=== PATIENT | male | born 1960 | race African-American/Black ===

== ENCOUNTER 2022-04-22 20:49 | Inpatient (IN) | payer OTHER, MEDICAID ==
[~2022-04-22] VITALS: Ht 175.3 cm; Wt 78.8 kg
[2022-04-22 22:35] LABS: Basophils # (auto) 0 10 ^3/uL (0-0.2); Basophils % (auto) 0.5 % (0.0-2.0); Eosinophils # (auto) 0.2 10 ^3/uL (0-0.8); Eosinophils % (auto) 1.7 % (0.0-7.0); Hematocrit 35.1 % (41.0-53.0); Hemoglobin 11.5 g/dL (13.5-17.5); Lymphocytes # (auto) 0.6 10 ^3/uL (0.4-5.4); Lymphocytes % (auto) 6.7 % (10.0-50.0); Mean Corpuscular Hemoglobin 31.5 pg (28.0-32.0); Mean Corpuscular Hgb Conc. 32.8 g/dL (32.0-36.0); Mean Corpuscular Volume 95.9 fL (80.0-100.0); Monocytes # (auto) 1.1 10 ^3/uL (0-1.3); Monocytes % (auto) 11.9 % (0.0-12.0); Neutrophils # (auto) 7.5 10 ^3/uL (1.6-8.6); Neutrophils % (auto) 79.2 % (37.0-80.0); Nucleated Red Blood Cells % 0.1 %; Red Blood Cells 3.66 10^6/uL (4.5-5.90); Red Cell Distribution Width 14.8 % (11.8-14.3); White Blood Cell 9.4 10^3/uL (4.4-10.8)
[2022-04-22 22:50] LABS: INR 1.28 (0.9-1.15); Partial Thromboplastin Time 29.1 sec (24.6-33.4)
[2022-04-22 22:51] LABS: Albumin 2.4 g/dL (3.4-5.0); BUN/Creatinine Ratio 28.3; Calcium 7.7 mg/dL (8.5-10.1); Potassium 3.7 mmol/L (3.5-5.1)
[2022-04-22 22:54] LABS: Bilirubin, Total 0.8 mg/dL (0.2-1.0); Total Protein 6.2 g/dL (6.4-8.2)
[2022-04-22] MEDS ORDERED: ENOXAPARIN SOD 80 MG/0.8ML SYRINGE SC ONE (23:15)
[2022-04-22] MEDS ORDERED: DEXTROSE (50%) 50ML SYRG IV PRN (23:45)
[2022-04-22] MEDS ORDERED: ACETAMINOPHEN 325 MG TAB PO PRN (23:45)
[2022-04-22] MEDS ORDERED: FUROSEMIDE 40 MG/4 ML VIAL IV ONE (23:45)
[2022-04-22] MEDS ORDERED: NITROGLYCERIN 0.4 MG SL TAB SL PRN (23:45)
[2022-04-22] MEDS ORDERED: ONDANSETRON HCL 4 MG/2 ML VIAL IV PRN (23:45)
[2022-04-22] MEDS ORDERED: ALBUMIN 25% 100 ML IV ONE (23:45)
[2022-04-22] MEDS ORDERED: HEPARIN SODIUM (PORCINE) 5000 UNITS/ML 1ML VIAL IV ONE (23:45)
[2022-04-22] MEDS ORDERED: MORPHINE SULFATE INJ 2 MG/ml SYRG IV PRN (23:45)
[2022-04-22] MEDS ORDERED: DOCUSATE SOD 100 MG CAP PO PRN (23:45)
[2022-04-23 00:37] LABS: Urine Bacteria NONE SEEN /hpf (None Seen); Urine Blood Negative /uL (Negative); Urine Hyaline Cast MOD /lpf (0 - 2); Urine Specific Gravity 1.009 (1.001-1.035); Urine WBC <1 /hpf (0 - 3)
[2022-04-23] MEDS: ACCU-CHEK COMFORT CURVE STRIP VI SCH ×4 (00:57→18:26)
[2022-04-23] MEDS: InsuLIN REG 1unit/0.01ml Soln (100units/ml) SC SCH ×4 (00:58→18:00)
[2022-04-23] MEDS: HYDROcodone-ACET 5/325MG TAB PO PRN ×3 (02:13→11:32)
[2022-04-23] MEDS: SODIUM CHLOR 0.9% PF (SALINE LOCK) 10ML VIAL/SYR IV SCH ×2 (06:00→14:03)
[2022-04-23 06:41] LABS: Basophils # (auto) 0 10 ^3/uL (0-0.2); Basophils % (auto) 0.4 % (0.0-2.0); Eosinophils # (auto) 0.1 10 ^3/uL (0-0.8); Eosinophils % (auto) 1.2 % (0.0-7.0); Hematocrit 33.8 % (41.0-53.0); Hemoglobin 10.7 g/dL (13.5-17.5); Lymphocytes # (auto) 0.7 10 ^3/uL (0.4-5.4); Lymphocytes % (auto) 8.9 % (10.0-50.0); Mean Corpuscular Hemoglobin 30.7 pg (28.0-32.0); Mean Corpuscular Hgb Conc. 31.7 g/dL (32.0-36.0); Monocytes # (auto) 0.9 10 ^3/uL (0-1.3); Neutrophils % (auto) 77.5 % (37.0-80.0); Nucleated Red Blood Cells % 0.1 %; Red Blood Cells 3.49 10^6/uL (4.5-5.90); White Blood Cell 7.8 10^3/uL (4.4-10.8)
[2022-04-23 06:55] LABS: Potassium 3.3 mmol/L (3.5-5.1)
[2022-04-23 07:01] LABS: Albumin 2.8 g/dL (3.4-5.0); Calcium 8.1 mg/dL (8.5-10.1)
[2022-04-23 07:08] LABS: Bilirubin, Total 1.4 mg/dL (0.2-1.0); Total Protein 6.3 g/dL (6.4-8.2)
[2022-04-23] MEDS: ASPirin 81 mg TAB PO SCH (09:59)
[2022-04-23] MEDS ORDERED: HEPARIN SODIUM (PORCINE) 5000 UNITS/ML 1ML VIAL SC SCH (10:00)
[2022-04-23] MEDS ORDERED: FUROSEMIDE 40 MG/4 ML VIAL IV SCH (10:00)
[2022-04-23] MEDS ORDERED: FAMOTIDINE (10MG/ML) 2ML VL IV SCH (10:00)
[2022-04-23 12:59] LABS: Protein, Urine 8.8 mg/dL (0.0-11.9)
[2022-04-23] MEDS ORDERED: SENNA 8.6 MG TAB PO PRN (14:30)
[2022-04-23] MEDS ORDERED: POLYETHYLENE GLYCOL 17 GM PWDR PO PRN (14:30)
[2022-04-23] MEDS ORDERED: CHOLECALCIFEROL (VITD3) 1,000UNIT=25mCg TAB PO ONE (14:30)
[2022-04-23] MEDS: MORPHINE SULFATE 4 MG/ML SYR/VIAL IV PRN ×2 (15:55→18:32)
[2022-04-23] MEDS: TAMSULOSIN HYDROCHLORIDE 0.4 MG CAP PO SCH (18:31)
[2022-04-23] MEDS ORDERED: ENOXAPARIN SOD 40 MG/0.4 ML SYRINGE SC SCH (22:00)
[2022-04-23] MEDS: ceFAZolin 2 GM in D5W 5% 100 ML IV SCH (22:21)
[2022-04-23] MEDS: GABAPENTIN 100 MG CAP PO SCH (22:36)
[2022-04-23] MEDS: SENNA 8.6 MG TAB PO SCH (22:36)
[2022-04-23] MEDS: INSULIN LANTUS (GLARGINE) 1 /0.01ml (100units/ml) SC SCH (22:37)
[2022-04-23] MEDS: METOPROLOL TARTRATE 50 MG TAB PO SCH (22:37)
[2022-04-23] MEDS: traZODone HCL 50 MG TAB PO SCH (22:41)
[2022-04-24] MEDS: ACCU-CHEK COMFORT CURVE STRIP VI SCH ×4 (00:17→18:29)
[2022-04-24 02:25] VITALS: BP 119/82
[2022-04-24 05:00] VITALS: BP 111/78
[2022-04-24] MEDS: InsuLIN REG 1unit/0.01ml Soln (100units/ml) SC SCH ×4 (06:00→18:43)
[2022-04-24] MEDS: ceFAZolin 2 GM in D5W 5% 100 ML IV SCH ×3 (07:12→15:43)
[2022-04-24 07:15] LABS: Basophils # (auto) 0 10 ^3/uL (0-0.2); Basophils % (auto) 0.6 % (0.0-2.0); Eosinophils # (auto) 0.2 10 ^3/uL (0-0.8); Eosinophils % (auto) 2.5 % (0.0-7.0); Hematocrit 30.9 % (41.0-53.0); Hemoglobin 10.1 g/dL (13.5-17.5); Lymphocytes # (auto) 0.6 10 ^3/uL (0.4-5.4); Lymphocytes % (auto) 9.8 % (10.0-50.0); Mean Corpuscular Hemoglobin 31.3 pg (28.0-32.0); Mean Corpuscular Hgb Conc. 32.6 g/dL (32.0-36.0); Monocytes # (auto) 0.9 10 ^3/uL (0-1.3); Monocytes % (auto) 14.1 % (0.0-12.0); Neutrophils # (auto) 4.8 10 ^3/uL (1.6-8.6); Nucleated Red Blood Cells % 0.1 %; Red Blood Cells 3.22 10^6/uL (4.5-5.90); Red Cell Distribution Width 14.6 % (11.8-14.3); White Blood Cell 6.5 10^3/uL (4.4-10.8)
[2022-04-24 07:30] LABS: Albumin 2.5 g/dL (3.4-5.0); Potassium 3.3 mmol/L (3.5-5.1)
[2022-04-24 07:32] LABS: BUN/Creatinine Ratio 27.8; Calcium 8.2 mg/dL (8.5-10.1)
[2022-04-24 07:35] LABS: Bilirubin, Total 1.2 mg/dL (0.2-1.0); Phosphorus 5.6 mg/dL (2.5-4.90); Total Protein 6.1 g/dL (6.4-8.2)
[2022-04-24] MEDS ORDERED: GAB100C PO (07:43)
[2022-04-24] MEDS ORDERED: FURO80TA3 PO (07:43)
[2022-04-24 09:00] VITALS: BP 123/66
[2022-04-24] MEDS: CHOLECALCIFEROL (VITD3) 1,000UNIT=25mCg TAB PO SCH (10:26)
[2022-04-24] MEDS: GABAPENTIN 100 MG CAP PO SCH ×2 (10:42→21:21)
[2022-04-24] MEDS: ASPirin 81 mg TAB PO SCH (10:42)
[2022-04-24] MEDS: VENLAFAXINE HCL 37.5mg XR cap PO SCH (10:43)
[2022-04-24] MEDS: METOPROLOL TARTRATE 50 MG TAB PO SCH ×2 (10:44→21:21)
[2022-04-24] MEDS: MORPHINE SULFATE 4 MG/ML SYR/VIAL IV PRN ×2 (10:46→20:18)
[2022-04-24] MEDS ORDERED: POTASSIUM CHL 20 Meq TABLET PO ONE (11:45)
[2022-04-24] MEDS: CALCIUM ACETATE 667 MG CAP PO SCH ×2 (12:47→18:28)
[2022-04-24 17:00] VITALS: BP 107/72
[2022-04-24] MEDS: TAMSULOSIN HYDROCHLORIDE 0.4 MG CAP PO SCH (18:28)
[2022-04-24 20:00] VITALS: BP 117/75
[2022-04-24] MEDS: ENOXAPARIN SOD 80 MG/0.8ML SYRINGE SC SCH (21:20)
[2022-04-24] MEDS: traZODone HCL 50 MG TAB PO SCH (21:21)
[2022-04-24] MEDS: SENNA 8.6 MG TAB PO SCH (21:22)
[2022-04-24] MEDS: INSULIN LANTUS (GLARGINE) 1 /0.01ml (100units/ml) SC SCH (21:40)
[2022-04-24 22:00] VITALS: BP 117/75
[2022-04-25] MEDS: ACCU-CHEK COMFORT CURVE STRIP VI SCH ×5 (00:07→22:32)
[2022-04-25 05:00] VITALS: BP 98/72
[2022-04-25] MEDS: MORPHINE SULFATE 4 MG/ML SYR/VIAL IV PRN ×3 (05:14→11:22)
[2022-04-25] MEDS: InsuLIN REG 1unit/0.01ml Soln (100units/ml) SC SCH ×5 (05:20→22:32)
[2022-04-25 07:11] LABS: Basophils # (auto) 0 10 ^3/uL (0-0.2); Basophils % (auto) 0.5 % (0.0-2.0); Eosinophils # (auto) 0.1 10 ^3/uL (0-0.8); Eosinophils % (auto) 1.8 % (0.0-7.0); Hematocrit 32.1 % (41.0-53.0); Hemoglobin 10.8 g/dL (13.5-17.5); Lymphocytes # (auto) 0.8 10 ^3/uL (0.4-5.4); Lymphocytes % (auto) 11.5 % (10.0-50.0); Mean Corpuscular Hemoglobin 32.7 pg (28.0-32.0); Mean Corpuscular Hgb Conc. 33.7 g/dL (32.0-36.0); Mean Corpuscular Volume 96.8 fL (80.0-100.0); Monocytes # (auto) 1.2 10 ^3/uL (0-1.3); Monocytes % (auto) 16.2 % (0.0-12.0); Neutrophils # (auto) 5.1 10 ^3/uL (1.6-8.6); Nucleated Red Blood Cells % 0.5 %; Red Blood Cells 3.32 10^6/uL (4.5-5.90); Red Cell Distribution Width 14.9 % (11.8-14.3); White Blood Cell 7.3 10^3/uL (4.4-10.8)
[2022-04-25 07:28] LABS: Potassium 3.9 mmol/L (3.5-5.1)
[2022-04-25 07:35] LABS: Albumin 2.4 g/dL (3.4-5.0); BUN/Creatinine Ratio 26.8; Calcium 8.1 mg/dL (8.5-10.1)
[2022-04-25 07:38] LABS: Bilirubin, Total 0.9 mg/dL (0.2-1.0); Total Protein 6.3 g/dL (6.4-8.2)
[2022-04-25 08:00] VITALS: BP 114/75
[2022-04-25] MEDS: CALCIUM ACETATE 667 MG CAP PO SCH ×3 (08:00→18:22)
[2022-04-25 09:00] VITALS: BP 114/75
[2022-04-25] MEDS: GABAPENTIN 100 MG CAP PO SCH ×2 (10:00→22:19)
[2022-04-25] MEDS: VENLAFAXINE HCL 37.5mg XR cap PO SCH (10:00)
[2022-04-25] MEDS: ASPirin 81 mg TAB PO SCH (10:00)
[2022-04-25] MEDS: CHOLECALCIFEROL (VITD3) 1,000UNIT=25mCg TAB PO SCH (10:00)
[2022-04-25] MEDS: METOPROLOL TARTRATE 50 MG TAB PO SCH ×2 (10:00→22:19)
[2022-04-25 13:00] VITALS: BP 109/83
[2022-04-25] MEDS ORDERED: FUROSEMIDE 100 MG/10ML VIAL IV ONE (14:00)
[2022-04-25] MEDS ORDERED: HYDROcodone-ACET 10/325MG TAB PO PRN (15:45)
[2022-04-25] MEDS: HYDROmorphone HCL 2 MG/ML VL/or syr IV PRN (16:22)
[2022-04-25 17:00] VITALS: BP_SYST 111; BP_SYST 157; BP_DIAS 77; BP_DIAS 97
[2022-04-25] MEDS: TAMSULOSIN HYDROCHLORIDE 0.4 MG CAP PO SCH (18:21)
[2022-04-25 22:00] VITALS: BP 107/69
[2022-04-25] MEDS: INSULIN LANTUS (GLARGINE) 1 /0.01ml (100units/ml) SC SCH (22:00)
[2022-04-25] MEDS: traZODone HCL 50 MG TAB PO SCH (22:18)
[2022-04-25] MEDS: SENNA 8.6 MG TAB PO SCH (22:21)
[2022-04-25] MEDS: ENOXAPARIN SOD 80 MG/0.8ML SYRINGE SC SCH (22:21)
[2022-04-25] MEDS: HYDROcodone-ACET 10/325MG TAB PO SCH (22:21)
[2022-04-26] MEDS: HYDROmorphone HCL 2 MG/ML VL/or syr IV PRN ×3 (00:23→19:42)
[2022-04-26 05:00] VITALS: BP 123/67
[2022-04-26] MEDS: InsuLIN REG 1unit/0.01ml Soln (100units/ml) SC SCH ×3 (06:00→17:25)
[2022-04-26] MEDS: ACCU-CHEK COMFORT CURVE STRIP VI SCH ×3 (06:04→17:25)
[2022-04-26] MEDS: FUROSEMIDE 40 MG/4 ML VIAL IV SCH ×2 (06:09→17:24)
[2022-04-26 07:53] LABS: Basophils # (auto) 0 10 ^3/uL (0-0.2); Basophils % (auto) 0.6 % (0.0-2.0); Eosinophils # (auto) 0.2 10 ^3/uL (0-0.8); Eosinophils % (auto) 2.4 % (0.0-7.0); Hematocrit 29.5 % (41.0-53.0); Hemoglobin 9.5 g/dL (13.5-17.5); Lymphocytes # (auto) 0.7 10 ^3/uL (0.4-5.4); Lymphocytes % (auto) 11.2 % (10.0-50.0); Mean Corpuscular Hemoglobin 31.3 pg (28.0-32.0); Mean Corpuscular Volume 97.6 fL (80.0-100.0); Monocytes # (auto) 1.1 10 ^3/uL (0-1.3); Monocytes % (auto) 15.9 % (0.0-12.0); Neutrophils # (auto) 4.7 10 ^3/uL (1.6-8.6); Neutrophils % (auto) 69.9 % (37.0-80.0); Nucleated Red Blood Cells % 0.1 %; Red Blood Cells 3.03 10^6/uL (4.5-5.90); Red Cell Distribution Width 14.9 % (11.8-14.3); White Blood Cell 6.7 10^3/uL (4.4-10.8)
[2022-04-26 08:49] VITALS: BP 123/74
[2022-04-26] MEDS: VENLAFAXINE HCL 37.5mg XR cap PO SCH (09:04)
[2022-04-26] MEDS: ASPirin 81 mg TAB PO SCH (09:05)
[2022-04-26] MEDS: CALCIUM ACETATE 667 MG CAP PO SCH ×3 (09:05→17:25)
[2022-04-26] MEDS: CHOLECALCIFEROL (VITD3) 1,000UNIT=25mCg TAB PO SCH (09:05)
[2022-04-26] MEDS: GABAPENTIN 100 MG CAP PO SCH ×2 (09:05→22:21)
[2022-04-26] MEDS: METOPROLOL TARTRATE 50 MG TAB PO SCH ×2 (09:06→22:20)
[2022-04-26] MEDS: HYDROcodone-ACET 10/325MG TAB PO SCH ×2 (09:22→22:21)
[2022-04-26 09:29] LABS: Chloride 97 mmol/L (98-107); Potassium 3.9 mmol/L (3.5-5.1); Sodium 136 mmol/L (136-145)
[2022-04-26 09:33] LABS: Alanine Aminotransferase < 6 U/L (16-61); Albumin 2.4 g/dL (3.4-5.0); Anion Gap 10 (5-15); Aspartate Aminotransferase 15 U/L (15-37); BUN/Creatinine Ratio 26.8; Calcium 8.2 mg/dL (8.5-10.1); Carbon Dioxide 29 mmol/L (21-32); GFR African American 22 mL/min; GFR Non-African American 18 mL/min; Glucose 89 mg/dL (74-106)
[2022-04-26 09:36] LABS: Alkaline Phosphatase 101 U/L (45-117); Total Protein 6.4 g/dL (6.4-8.2)
[2022-04-26 10:07] LABS: Blood Urea Nitrogen 98 mg/dL (7-18)
[2022-04-26 13:00] VITALS: BP 123/82
[2022-04-26 17:05] VITALS: BP 111/78
[2022-04-26] MEDS: TAMSULOSIN HYDROCHLORIDE 0.4 MG CAP PO SCH (17:25)
[2022-04-26 22:00] VITALS: BP 117/80
[2022-04-26] MEDS: INSULIN LANTUS (GLARGINE) 1 /0.01ml (100units/ml) SC SCH (22:00)
[2022-04-26] MEDS: SENNA 8.6 MG TAB PO SCH (22:19)
[2022-04-26] MEDS: traZODone HCL 50 MG TAB PO SCH (22:20)
[2022-04-26] MEDS: ENOXAPARIN SOD 80 MG/0.8ML SYRINGE SC SCH (22:22)
[2022-04-27] MEDS: HYDROmorphone HCL 2 MG/ML VL/or syr IV PRN ×2 (04:46→13:59)
[2022-04-27 05:00] VITALS: BP 115/78
[2022-04-27] MEDS: InsuLIN REG 1unit/0.01ml Soln (100units/ml) SC SCH ×4 (05:56→17:49)
[2022-04-27] MEDS: ACCU-CHEK COMFORT CURVE STRIP VI SCH ×4 (05:56→17:49)
[2022-04-27] MEDS: FUROSEMIDE 40 MG/4 ML VIAL IV SCH (06:03)
[2022-04-27 06:09] LABS: Basophils # (auto) 0 10 ^3/uL (0-0.2); Basophils % (auto) 0.3 % (0.0-2.0); Eosinophils # (auto) 0.1 10 ^3/uL (0-0.8); Eosinophils % (auto) 2.2 % (0.0-7.0); Hematocrit 32.4 % (41.0-53.0); Hemoglobin 10.4 g/dL (13.5-17.5); Lymphocytes # (auto) 0.9 10 ^3/uL (0.4-5.4); Lymphocytes % (auto) 14.6 % (10.0-50.0); Mean Corpuscular Hemoglobin 31.3 pg (28.0-32.0); Mean Corpuscular Hgb Conc. 32.2 g/dL (32.0-36.0); Mean Corpuscular Volume 97.3 fL (80.0-100.0); Monocytes % (auto) 15.6 % (0.0-12.0); Neutrophils # (auto) 4.3 10 ^3/uL (1.6-8.6); Neutrophils % (auto) 67.3 % (37.0-80.0); Red Blood Cells 3.34 10^6/uL (4.5-5.90); White Blood Cell 6.4 10^3/uL (4.4-10.8)
[2022-04-27 06:26] LABS: Chloride 95 mmol/L (98-107); Potassium 4.9 mmol/L (3.5-5.1); Sodium 137 mmol/L (136-145)
[2022-04-27 06:34] LABS: Alanine Aminotransferase < 6 U/L (16-61); Albumin 2.6 g/dL (3.4-5.0); Anion Gap 10 (5-15); Aspartate Aminotransferase 16 U/L (15-37); BUN/Creatinine Ratio 25.3; Calcium 8.5 mg/dL (8.5-10.1); Carbon Dioxide 32 mmol/L (21-32); GFR African American 21 mL/min; GFR Non-African American 17 mL/min; Glucose 91 mg/dL (74-106)
[2022-04-27 06:36] LABS: Blood Urea Nitrogen 98 mg/dL (7-18)
[2022-04-27 06:37] LABS: Alkaline Phosphatase 108 U/L (45-117); Total Protein 6.7 g/dL (6.4-8.2)
[2022-04-27] MEDS: CALCIUM ACETATE 667 MG CAP PO SCH ×3 (08:41→17:48)
[2022-04-27] MEDS: CHOLECALCIFEROL (VITD3) 1,000UNIT=25mCg TAB PO SCH (08:42)
[2022-04-27] MEDS: ASPirin 81 mg TAB PO SCH (08:42)
[2022-04-27] MEDS: GABAPENTIN 100 MG CAP PO SCH ×2 (08:43→21:49)
[2022-04-27] MEDS: HYDROcodone-ACET 10/325MG TAB PO SCH ×2 (08:43→21:51)
[2022-04-27] MEDS: VENLAFAXINE HCL 37.5mg XR cap PO SCH (08:43)
[2022-04-27] MEDS: METOPROLOL TARTRATE 50 MG TAB PO SCH ×2 (08:44→21:50)
[2022-04-27 08:49] VITALS: BP 117/79
[2022-04-27 13:00] VITALS: BP 121/72
[2022-04-27] MEDS ORDERED: AMIODARONE HCL 200 MG TAB PO ONE (13:00)
[2022-04-27] MEDS ORDERED: AMIO200T33 PO ×2 (15:27→15:28)
[2022-04-27] MEDS ORDERED: SENN-83 PO ×2 (15:38)
[2022-04-27] MEDS ORDERED: CHOL1TAB30 PO (15:38)
[2022-04-27 16:27] VITALS: BP 111/69
[2022-04-27] MEDS: TAMSULOSIN HYDROCHLORIDE 0.4 MG CAP PO SCH (17:48)
[2022-04-27] MEDS: FUROSEMIDE 20 MG TAB PO SCH (17:49)
[2022-04-27] MEDS: APIXABAN 2.5 MG TAB PO SCH (21:49)
[2022-04-27] MEDS: SENNA 8.6 MG TAB PO SCH (21:49)
[2022-04-27] MEDS: traZODone HCL 50 MG TAB PO SCH (21:49)
[2022-04-27] MEDS: AMIODARONE HCL 200 MG TAB PO SCH (21:50)
[2022-04-27] MEDS: INSULIN LANTUS (GLARGINE) 1 /0.01ml (100units/ml) SC SCH (21:53)
[2022-04-27 22:00] VITALS: BP 111/68
[2022-04-28] VITALS (7 sets, daily range): BP systolic 95–110; BP diastolic 63–79
[2022-04-28] MEDS: InsuLIN REG 1unit/0.01ml Soln (100units/ml) SC SCH ×5 (00:20→23:27)
[2022-04-28] MEDS: ACCU-CHEK COMFORT CURVE STRIP VI SCH ×5 (00:20→23:27)
[2022-04-28] MEDS: FUROSEMIDE 20 MG TAB PO SCH ×2 (05:33→18:00)
[2022-04-28 07:29] LABS: Hematocrit 31.4 % (41.0-53.0); Hemoglobin 10.4 g/dL (13.5-17.5); Mean Corpuscular Hemoglobin 32.2 pg (28.0-32.0); Mean Corpuscular Volume 97.6 fL (80.0-100.0); Red Blood Cells 3.22 10^6/uL (4.5-5.90); White Blood Cell 5.9 10^3/uL (4.4-10.8)
[2022-04-28 07:42] LABS: Basophils % (manual) 0 (0.0-2.0); Blast Cells 0; Eosinophils % (manual) 0 (0-7); Metamyelocytes % 0; Myelocytes % 0; Promyelocytes % 0; Reactive Lymphocytes 0
[2022-04-28 07:56] LABS: Potassium 4.2 mmol/L (3.5-5.1)
[2022-04-28] MEDS: CALCIUM ACETATE 667 MG CAP PO SCH ×3 (08:20→18:32)
[2022-04-28 08:22] LABS: Albumin 2.3 g/dL (3.4-5.0); BUN/Creatinine Ratio 26.6; Bilirubin, Total 1.1 mg/dL (0.2-1.0); Calcium 8.2 mg/dL (8.5-10.1); Total Protein 6.2 g/dL (6.4-8.2)
[2022-04-28 09:38] LABS: Band Neutrophils % (manual) 1; Lymphocytes % (manual) 12 (10.0-50.0); Monocytes % (manual) 13 (0-12)
[2022-04-28] MEDS: CHOLECALCIFEROL (VITD3) 1,000UNIT=25mCg TAB PO SCH (09:57)
[2022-04-28] MEDS: ASPirin 81 mg TAB PO SCH (09:57)
[2022-04-28] MEDS: VENLAFAXINE HCL 37.5mg XR cap PO SCH (09:57)
[2022-04-28] MEDS: APIXABAN 2.5 MG TAB PO SCH ×2 (09:58→22:28)
[2022-04-28] MEDS: AMIODARONE HCL 200 MG TAB PO SCH ×2 (09:58→22:28)
[2022-04-28] MEDS: GABAPENTIN 100 MG CAP PO SCH ×2 (09:58→22:32)
[2022-04-28] MEDS: HYDROcodone-ACET 10/325MG TAB PO SCH ×2 (09:59→22:34)
[2022-04-28] MEDS: METOPROLOL TARTRATE 50 MG TAB PO SCH ×2 (09:59→22:00)
[2022-04-28] MEDS: HYDROmorphone HCL 2 MG/ML VL/or syr IV PRN (13:20)
[2022-04-28] MEDS: TAMSULOSIN HYDROCHLORIDE 0.4 MG CAP PO SCH (18:32)
[2022-04-28] MEDS: INSULIN LANTUS (GLARGINE) 1 /0.01ml (100units/ml) SC SCH (22:00)
[2022-04-28] MEDS: SENNA 8.6 MG TAB PO SCH (22:33)
[2022-04-28] MEDS: traZODone HCL 50 MG TAB PO SCH (22:34)
[2022-04-29] MEDS: InsuLIN REG 1unit/0.01ml Soln (100units/ml) SC SCH ×2 (05:15→13:04)
[2022-04-29] MEDS: ACCU-CHEK COMFORT CURVE STRIP VI SCH ×2 (05:15→13:04)
[2022-04-29 05:17] VITALS: BP 102/62
[2022-04-29] MEDS: FUROSEMIDE 20 MG TAB PO SCH (06:02)
[2022-04-29 08:22] LABS: Basophils # (auto) 0 10 ^3/uL (0-0.2); Basophils % (auto) 0.8 % (0.0-2.0); Eosinophils # (auto) 0.2 10 ^3/uL (0-0.8); Eosinophils % (auto) 2.8 % (0.0-7.0); Hematocrit 31.6 % (41.0-53.0); Hemoglobin 10.4 g/dL (13.5-17.5); Lymphocytes # (auto) 0.7 10 ^3/uL (0.4-5.4); Mean Corpuscular Hemoglobin 32.3 pg (28.0-32.0); Mean Corpuscular Hgb Conc. 32.9 g/dL (32.0-36.0); Mean Corpuscular Volume 98.2 fL (80.0-100.0); Monocytes % (auto) 16.4 % (0.0-12.0); Nucleated Red Blood Cells % 0.1 %; Red Blood Cells 3.22 10^6/uL (4.5-5.90); Red Cell Distribution Width 15.3 % (11.8-14.3); White Blood Cell 5.8 10^3/uL (4.4-10.8)
[2022-04-29] MEDS: CALCIUM ACETATE 667 MG CAP PO SCH ×2 (08:28→12:43)
[2022-04-29 08:40] LABS: Albumin 2.3 g/dL (3.4-5.0); BUN/Creatinine Ratio 29.2; Calcium 8.2 mg/dL (8.5-10.1); Total Protein 6.1 g/dL (6.4-8.2)
[2022-04-29 09:00] VITALS: BP 94/62
[2022-04-29] MEDS: METOPROLOL TARTRATE 50 MG TAB PO SCH (10:00)
[2022-04-29] MEDS: ASPirin 81 mg TAB PO SCH (10:05)
[2022-04-29] MEDS: APIXABAN 2.5 MG TAB PO SCH (10:06)
[2022-04-29] MEDS: HYDROcodone-ACET 10/325MG TAB PO SCH (10:06)
[2022-04-29] MEDS: GABAPENTIN 100 MG CAP PO SCH (10:06)
[2022-04-29] MEDS: AMIODARONE HCL 200 MG TAB PO SCH (10:07)
[2022-04-29] MEDS: CHOLECALCIFEROL (VITD3) 1,000UNIT=25mCg TAB PO SCH (10:10)
[2022-04-29] MEDS: VENLAFAXINE HCL 37.5mg XR cap PO SCH (10:10)
[2022-04-29 13:00] VITALS: BP 101/66
== END 2022-04-29 11:00 | disposition home or self-care (01) | DRG 562 ==
LOC: EDBD 20:49 → ER 20:53 → TELE 23:48 → TELE-WESTW 04-23 23:16
PROVIDERS: ADMIT Nurse Practitioner Family; ATTEND Internal Medicine Pulmonary Disease
DX: S82.221A Displaced transverse fracture of shaft of right tibia, initial encounter for closed fracture (principal); E43 Unspecified severe protein-calorie malnutrition; I50.23 Acute on chronic systolic (congestive) heart failure; I13.0 Hypertensive heart and chronic kidney disease with heart failure and stage 1 through stage 4 chronic kidney disease, or unspecified chronic kidney disease; N18.4 Chronic kidney disease, stage 4 (severe); Z20.822 Contact with and (suspected) exposure to COVID-19; K74.60 Unspecified cirrhosis of liver; S82.401A Unspecified fracture of shaft of right fibula, initial encounter for closed fracture; I48.0 Paroxysmal atrial fibrillation; E88.09 Other disorders of plasma-protein metabolism, not elsewhere classified; M81.0 Age-related osteoporosis without current pathological fracture; E11.22 Type 2 diabetes mellitus with diabetic chronic kidney disease; I25.10 Atherosclerotic heart disease of native coronary artery without angina pectoris; W18.39XA Other fall on same level, initial encounter; Y93.89 Activity, other specified; Y92.89 Other specified places as the place of occurrence of the external cause; Y99.8 Other external cause status; Z68.25 Body mass index [BMI] 25.0-25.9, adult; Z95.0 Presence of cardiac pacemaker
CPT/HCPCS: 36415; 71045; 73560; 73590; 73600; 73700; 76775; 80053; 81001; 82306; 82570; 82962; 83036; 83735; 83880; 83970; 84100; 84156; 84484; 85007; 85025; 85027; 85610; 85730; 86850; 86900; 86901; 87426; 93005; 93306; 93970; 96361; 96374; 96375; 96376; 97110; 97116; 97163; 97530; 99291; G0378; J0690; J1815; J3490; J7060; P9047